=== PATIENT | male | born 1980 | race Two or more races ===

== ENCOUNTER 2018-06-09 07:42 | Emergency (ER) | payer OTHER ==
[~2018-06-09] VITALS: Ht 167.6 cm; Wt 72.0 kg
[2018-06-09] MEDS ORDERED: ipratropium/albuterol 3ml nebule NEB ONE (08:05)
[2018-06-09] MEDS ORDERED: predniSONE 20 mg tablet PO ONE (08:05)
[2018-06-09] MEDS ORDERED: ALBU6.7H INH (08:10)
[2018-06-09] MEDS ORDERED: PRED20TA PO (08:10)
[2018-06-09 08:50] VITALS: BP 119/79
== END 2018-06-09 08:51 | disposition home or self-care (01) ==
LOC: ER 07:43
DX: J45.21 Mild intermittent asthma with (acute) exacerbation (principal); F17.200 Nicotine dependence, unspecified, uncomplicated; F12.90 Cannabis use, unspecified, uncomplicated; Z79.899 Other long term (current) drug therapy
CPT/HCPCS: 94640; 94760; 99283; J7512